=== PATIENT | female | born 1975 | race Caucasian/White ===

== ENCOUNTER 2017-01-04 08:23 | Emergency (ER) | payer OTHER ==
[2017-01-04 08:36] VITALS: BP 142/101
[2017-01-04] MEDS ORDERED: Ibuprofen TAB* 600 MG PO ONE (09:02)
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
== END 2017-01-04 10:15 | disposition home or self-care (01) ==
LOC: UCEAST 08:23
DX: S00.83XA Contusion of other part of head, initial encounter (principal); X58.XXXA Exposure to other specified factors, initial encounter
CPT/HCPCS: 70110; 99212; A9270-GY; G0463

== ENCOUNTER 2017-05-08 17:33 | Emergency (ER) | payer OTHER ==
[2017-05-08 17:38] VITALS: BP 138/90
--- NOTE | 2017-05-08 19:30 | UC ---
da Sánchez Timothy, scribed for Maricruz Westbrook DO on 05/08/17 at 1800 . - HPI Summary HPI Summary: Maricruz Campbell is a 41 yo female presenting to [facility] with 6/10 suprapubic cramping, more on the left, and spotting since this afternoon, with 4 positive tests over the past 3 days. She also notes some pain in her lower back , and states she vomited 7x yesterday. She denies any other Sx. She states that she has a Hx of spotting with . She denies Hx of complications. Her MHx includes cholecystectomy. She states her LNMP was mid- March. - History of Current Complaint Chief Complaint: UCGU Stated Complaint: PREG-PAIN AND SPOTTING Time Seen by Provider: 05/08/17 18:04 Hx Obtained From: Patient Chief Complaint: Pain, Vaginal Bleeding Onset/Duration: Started Hours Ago, Still Present Timing: Constant Severity: Moderate Current Severity: Moderate Pain Intensity: 6 Location of Pain: Suprapubic - worse on left Character: Dull Aggravating Factors: Nothing Alleviating Factors: Nothing Associated Signs and Symptoms: Positive: Back Pain, Nausea, Vaginal Bleeding or Discharge, Vomiting. Negative: Fever, Urinary Symptoms - Assessment Hx Now: Yes - Allergies/Home Medications Allergies/Adverse Reactions: Allergies Allergy/AdvReac Type Severity Reaction Status Date / Time UNKNOWN ABX Allergy Unknown Unknown Uncoded 05/08/17 19:03 Reaction Details PMH/Surg Hx/FS Hx/Imm Hx Previously Healthy: Yes Endocrine/Hematology History: Denies: Hx Diabetes, Hx Thyroid Disease Cardiovascular History: Denies: Hx Hypertension Respiratory History: Denies: Hx Asthma, Hx Chronic Obstructive Pulmonary Disease (COPD) GI History: Denies: Hx Ulcer - Surgical History Surgery Procedure, Year, and Place: Cholecystectomy 2012 Infectious Disease History: No Infectious Disease History: Denies: Hx Clostridium Difficile, Hx Hepatitis, Hx Human Immunodeficiency Virus (HIV), Hx of Known/Suspected MRSA, Hx Shingles, Hx Tuberculosis, Hx Known/ Suspected VRE, Hx Known/Suspected VRSA, History Other Infectious Disease, Traveled Outside the [place] in Last 30 Days - Family History Known Family History: Positive: Hypertension, Diabetes, Other - [place] - Social History Alcohol Use: Occasionally Substance Use Type: Reports: None Smoking Status (MU): Never Smoked Tobacco Review of Systems Constitutional: Negative Skin: Negative Eyes: Negative ENT: Negative Respiratory: Negative Cardiovascular: Negative Gastrointestinal: Abdominal Pain Genitourinary: Other - vaginal spotting Motor: Negative Neurovascular: Negative Musculoskeletal: Other: - low back pain Neurological: Negative Psychological: Negative All Other Systems Reviewed And Are Negative: Yes Physical Exam - Physical Exam Triage Information Reviewed: Yes Vital Signs On Initial Exam: Initial Vital Signs Temp 99.3 F 05/08/17 17:35 Pulse 86 05/08/17 17:35 Resp 18 05/08/17 17:35 BP 138/90 05/08/17 17:35 Pulse Ox 100 05/08/17 17:35 Vital Signs Reviewed: Yes Appearance: Positive: Well-Appearing, Well-Nourished, Pain Distress - mild- moderate Skin: Positive: Warm, Skin Color Reflects Adequate Perfusion, Dry Head/Face: Positive: Normal Head/Face Inspection Eyes: Positive: Conjunctiva Clear. Negative: Discharge ENT: Positive: Hearing grossly normal. Negative: Muffled/hoarse voice Neck: Positive: Supple Respiratory/Lung Sounds: Positive: Clear to Auscultation, Breath Sounds Present Cardiovascular: Positive: RRR. Negative: Murmur Abdomen Description: Positive: Soft. Negative: Nontender - LLQ tenderness, Distended, Guarding Bowel Sounds: Positive: Present Musculoskeletal: Positive: Normal, Strength/ROM Intact Neurological: Positive: Sensory/Motor Intact, Alert, Oriented to Person Place, Time Psychiatric: Positive: Normal, Affect/Mood Appropriate Re-Evaluation - Re-Evaluation First Eval Re-Evaluation Time: 18:23 Change: Unchanged Comment: Discussed results of UA and tests. Advised Pt to present to [facility] for US. Pt is agreeable to this plan. Course/Dx - Course Assessment/Plan: Maricruz Campbell is a 41 yo female presenting to [facility] [address] with 6/ 10 suprapubic cramping, worse on the left, since today accompanied by vaginal bleeding, stating that she vomited 7x last night, and has taken four tests, all of which are positive. Pt medication list reviewed this visit. Her test was positive. After clinical examination and review of her lab studies, she was advised to be transferred to [facility] for further evaluation. EMS were offered for transport, which Pt declines. She will be transferred to [facility] by private car. - Differential Diagnosis/HQI/PQRI: Spontaneous , Ectopic , Vaginal Bleeding - Diagnoses Provider Diagnoses: , abd pain, r/o ectopic - Provider Notifications Discussed Care Of Patient With: Shalini Sahu - Discussed Pt condition, recommends transfer to [facility] Time Discussed With Above Provider: 18:25 Instructed by Provider To: Transfer Discharge - Discharge Plan Condition: Stable Disposition: TRANS HIGHER LVL OF CARE FAC Discharge Disposition Comment: transfer to [facility] by private car Referrals: John Valverde PA [Primary Care Provider] - The documentation as recorded by the da zaragoza Timothy accurately reflects the service I personally performed and the decisions made by , Maricruz Westbrook DO.
--- NOTE | 2017-05-11 10:01 | UC ---
Progress - Progress Note Progress Note: PLS NOTIFY PT - URINE CULTURE WITH E.COLI. SENSITIVITIES NOT YET AVAILABLE. WILL START MACROBID AND NOTIFY PT IF MEDS NEED TO BE CHANGED ONCE SENSITIVITIES RETURN. ERX SENT TO [facility] [place]. PLS CONFIRM THAT PT SOUGHT FOLLOW-UP WITH HER PCP FOR HER SX AND THAT SHE IS FEELING IMPROVED. - MITUL CASTILLO MD Re-Evaluation - Re-Evaluation First Eval Re-Evaluation Time: 18:23 Change: Unchanged Comment: Discussed results of UA and tests. Advised Pt to present to [facility] for US. Pt is agreeable to this plan.
== END 2017-05-08 18:48 | disposition short-term general hospital (02) ==
LOC: UCEAST 17:33
DX: O26.899 Other specified pregnancy related conditions, unspecified trimester (principal); R10.32 Left lower quadrant pain; O23.40 Unspecified infection of urinary tract in pregnancy, unspecified trimester; B96.20 Unspecified Escherichia coli [E. coli] as the cause of diseases classified elsewhere; Z3A.00 Weeks of gestation of pregnancy not specified
CPT/HCPCS: 81003; 84702; 87077; 87086; 87186; 99212; G0463

== ENCOUNTER 2017-05-08 18:58 | Emergency (ER) | payer OTHER ==
[2017-05-08 19:03] VITALS: BP 149/103
== END 2017-05-08 19:57 | disposition left against medical advice (07) ==
LOC: ED 18:58
DX: O46.90 Antepartum hemorrhage, unspecified, unspecified trimester (principal); Z53.21 Procedure and treatment not carried out due to patient leaving prior to being seen by health care provider
CPT/HCPCS: 99281